=== PATIENT | female | born 1990 | race Caucasian/White ===

== ENCOUNTER → 2018-02-13 | Outpatient (CLI) | payer BC, OTHER ==
--- NOTE | 2018-02-13 12:57 | WOMENS IMAGING REPORT ---
EXAM DESCRIPTION: EMPLOYEE; U/S BREAST UNILAT LIMITED COMPLETED DATE/TIME: 02/13/2018 12:41 pm REASON FOR STUDY: UNSPECIFED LUMP; N63.10 DYSPARURIA; N94.10 N63.10 UNSPECIFIED LUMP IN THE RIGHT BREAST, UNSPECIFIED LIZ N94.10 UNSPECIFIED DYSPAREUNIA COMPARISON: None TECHNIQUE: Static and Realtime grayscale interrogation of focal area(s) of concern in the right kait st(s) acquired. Selected color doppler/spectral images saved to PACS. LIMITATIONS: None. FINDINGS: Masses:No cystic or solid masses identified. Dense parenchymal tissue. Architecture:No alteration of normal morphology. No skin thickening. No edema. Other: None. IMPRESSION: No suspicious findings detected by ultrasound. BIRAD: 1 Negative. RECOMMENDATION: RECOMMENDED FOLLOW-UP: Follow-up as clinically indicated. COMMENT: The [employer] ([employer]) has developed recommendations for screening MRI of the breasts in certain patient populations, to be used in conjunction with mammography. Breast MRI s urveillance may be appropriate for women with more than 20% lifetime risk of developing breast cancer as determined by genetic testing, significant family history of the disease, or history of mantle r adiation for Hodgkins Disease. [employer] Practice Guidelines 2008. TECHNICAL DOCUMENTATION: FINDING NUMBER: (1) ASSESSMENT: (1) JOB ID: [id number] [employer]- All Rights Reserved Reading location - IP/workstation name: [facility]-RR
--- NOTE | 2018-02-13 12:57 | WOMENS IMAGING REPORT ---
EXAM DESCRIPTION: EMPLOYEE; U/S BREAST UNILAT LIMITED COMPLETED DATE/TIME: 02/13/2018 12:41 pm REASON FOR STUDY: UNSPECIFED LUMP; N63.10 DYSPARURIA; N94.10 N63.10 UNSPECIFIED LUMP IN THE RIGHT BREAST, UNSPECIFIED LIZ N94.10 UNSPECIFIED DYSPAREUNIA COMPARISON: None TECHNIQUE: Static and Realtime grayscale interrogation of focal area(s) of concern in the right kait st(s) acquired. Selected color doppler/spectral images saved to PACS. LIMITATIONS: None. FINDINGS: Masses:No cystic or solid masses identified. Dense parenchymal tissue. Architecture:No alteration of normal morphology. No skin thickening. No edema. Other: None. IMPRESSION: No suspicious findings detected by ultrasound. BIRAD: 1 Negative. RECOMMENDATION: RECOMMENDED FOLLOW-UP: Follow-up as clinically indicated. COMMENT: The [employer] ([employer]CR) has developed recommendations for screening MRI of the breasts in certain patient populations, to be used in conjunction with mammography. Breast MRI s urveillance may be appropriate for women with more than 20% lifetime risk of developing breast cancer as determined by genetic testing, significant family history of the disease, or history of mantle r adiation for Hodgkins Disease. A[employer] Practice Guidelines 2008. TECHNICAL DOCUMENTATION: FINDING NUMBER: (1) ASSESSMENT: (1) JOB ID: [id number] [employer]- All Rights Reserved Reading location - IP/workstation name: [facility]-RR
--- NOTE | 2018-02-13 13:25 | WOMENS IMAGING REPORT ---
EXAM DESCRIPTION: TRANSVAGINAL ULTRASOUND COMPLETED DATE/TIME: 02/13/2018 12:41 pm REASON FOR STUDY: UNSPECIFED LUMP; N63.10 DYSPARURIA; N94.10 N63.10 UNSPECIFIED LUMP IN THE RIGHT BREAST, UNSPECIFIED LIZ N94.10 UNSPECIFIED DYSPAREUNIA COMPARISON: None. TECHNIQUE: Dynamic and static grayscale images acquired of the pelvis via transvaginal approach and recorded on PACS. Additional selected color Doppler and spectral images recorded. LIMITATIONS: None. FINDINGS: UTERUS: Contour normal. No mass. ENDOMETRIAL STRIPE: No focal or generalized thickening. No masses. CERVIX: No nabothian cysts. RIGHT OVARY AND DOPPLER: Normal size. No worrisome masses. Normal arterial vascular flow without evid ence for torsion. LEFT OVARY AND DOPPLER: Normal size. No worrisome masses. Normal arterial vascular flow without evide nce for torsion. FREE FLUID: None noted. OTHER: No other significant finding. MEASUREMENTS: UTERUS: 8.3 x 3.2 x 3.8 cm ENDOMETRIAL STRIPE: 3.1 mm RIGHT OVARY: 3.6 x 2.3 x 2.7 cm LEFT OVARY: 3.2 x 2.2 x 3.4 cm IMPRESSION: NORMAL TRANSVAGINAL PELVIC ULTRASOUND. TECHNICAL DOCUMENTATION: JOB ID: [id number] [employer]- All Rights Reserved Reading location - IP/workstation name: [email or web address]
== END ==
LOC: WI 10:09
PROVIDERS: ATTEND Physician Assistant
DX: N63.10 Unspecified lump in the right breast, unspecified quadrant (principal); N94.10 Unspecified dyspareunia
CPT/HCPCS: 76642; 76830

== ENCOUNTER → 2018-05-12 | Outpatient (CLI) | payer BC, OTHER ==
--- NOTE | 2018-05-12 09:47 | RADIOLOGY REPORT (SQ) ---
EXAM DESCRIPTION: U/S ABDOMEN LIMITED W/O DOP COMPLETED DATE/TIME: 05/12/2018 9:32 am REASON FOR STUDY: EPIGASTRIC PAIN R10.13 EPIGASTRIC PAIN COMPARISON: None. TECHNIQUE: Dynamic and static grayscale images acquired of the abdomen and recorded on PACS. Additio nal selected color Doppler and spectral images recorded. LIMITATIONS: None. FINDINGS: PANCREAS: Midline pancreas unremarkable LIVER: No masses. Echotexture normal. LIVER VASCULATURE: Normal directional flow of the main portal vein and hepatic veins. GALLBLADDER: No stones. Normal wall thickness. No pericholecystic fluid. ULTRASOUND-DETECTED CHANEL'S SIGN: Negative. INTRAHEPATIC DUCTS AND COMMON DUCT: CBD and intrahepatic ducts normal caliber. No filling defects. INFERIOR VENA CAVA: Normal flow. AORTA: No aneurysm. RIGHT KIDNEY: Normal size. Normal echogenicity. No solid or suspicious masses. No hydronephrosis. No calcifications. PERITONEAL AND RIGHT PLEURAL SPACE: No ascites or effusions. OTHER: No other significant findings. IMPRESSION: NORMAL RIGHT UPPER QUADRANT ULTRASOUND. TECHNICAL DOCUMENTATION: JOB ID: [id number] [employer]- All Rights Reserved Reading location - IP/workstation name: [facility]-[email or web address]
== END ==
LOC: RAD 09:12
PROVIDERS: ATTEND Physician Assistant
DX: R10.13 Epigastric pain (principal)
CPT/HCPCS: 76705

== ENCOUNTER 2018-08-18 17:21 | Emergency (ER) | payer BC, OTHER ==
--- NOTE | 2018-08-18 17:43 | RADIOLOGY REPORT (SQ) ---
EXAM DESCRIPTION: FOOT RIGHT COMPLETE COMPLETED DATE/TIME: 08/18/2018 5:35 pm REASON FOR STUDY: RIGHT FOOT INJURY COMPARISON: None. NUMBER OF VIEWS: Three views. TECHNIQUE: AP, lateral and oblique radiographic images acquired of the right foot. LIMITATIONS: None. FINDINGS: MINERALIZATION: Normal. BONES: Comminuted fracture of the calcaneus posterior inferior is tube and tear superior extends into the subtalar joint. Mild comminution. There is also an extension anterior inferior. JOINTS: No effusions. SOFT TISSUES: No soft tissue swelling. No foreign body. OTHER: No other significant finding. IMPRESSION: Comminuted minimally displaced fracture of the calcaneus with extension into the subtala r joint. TECHNICAL DOCUMENTATION: JOB ID: [id number] [employer]- All Rights Reserved Reading location - IP/workstation name: [email or web address]
[2018-08-18 17:53] VITALS: BP 134/85
[2018-08-18] MEDS ORDERED: HYDROMORPHONE HCL INJ/PF 2 MG/ML AMPULE IV ONE (17:56)
[2018-08-18] MEDS ORDERED: ONDANSETRON HCL INJ/PF 4 MG/2 ML SDV IV ONE (18:01)
--- NOTE | 2018-08-18 18:02 | ER Document Report ---
HPI - HPI Patient complains to provider of: Foot injury Time Seen by Provider: 08/18/18 17:51 Onset: Just prior to arrival Onset/Duration: Sudden Quality of pain: Sharp Pain Level: 4 Context: Patient states that her dog pulled her down half a flight of stairs just prior to arrival as he was chasing another dog. Patient complains of right heel pain and left midfoot pain. Patient denies any head injury or loss of consciousness. Patient denies any back pain. Associated Symptoms: Other - Bilateral feet injury Exacerbated by: Standing, Movement, Walking Relieved by: Denies Similar symptoms previously: No Recently seen / treated by doctor: No - ROS ROS below otherwise negative: Yes Systems Reviewed and Negative: Yes All other systems reviewed and negative - CONSTITUTIONAL Constitutional: DENIES: Fever, Chills - NEURO Neurology: DENIES: Headache, Weakness - GASTROINTESTINAL Gastrointestinal: DENIES: Nausea - MUSCULOSKELETAL Musculoskeletal: REPORTS: Extremity pain - right heel, top of left foot, Swelling - DERM Skin Color: Normal Skin Problems: Abrasion Past Medical History - General Information source: Patient - Social History Smoking Status: Never Smoker Frequency of alcohol use: None Drug Abuse: None Occupation: Nurse at the hospital Lives with: Spouse/Significant other Family History: Reviewed & Not Pertinent Patient has suicidal ideation: No Patient has homicidal ideation: No - Medical History Medical History: Negative Renal/ Medical History: Denies: Hx Peritoneal Dialysis Past Surgical History: Reports: Hx Adenoidectomy, Hx Myringotomy, Hx Orthopedic Surgery Vertical Provider Document - CONSTITUTIONAL Agree With Documented VS: Yes Exam Limitations: No Limitations General Appearance: WD/WN, No Apparent Distress - INFECTION CONTROL TRAVEL OUTSIDE OF THE [place] IN LAST 30 DAYS: No - HEENT HEENT: Atraumatic, Normocephalic - NECK Neck: Normal Inspection, Supple - RESPIRATORY Respiratory: Breath Sounds Normal, No Respiratory Distress - CARDIOVASCULAR Cardiovascular: Regular Rate, Regular Rhythm Pulses: Normal: Dorsalis pedis - BACK Back: Normal Inspection Notes: No spinal midline tenderness step-off or deformity - MUSCULOSKELETAL/EXTREMETIES Musculoskeletal/Extremeties: MAEW, Tender - Right foot tenderness over calcaneus with 1+ edema, left distal midfoot tenderness that extends to toes 2 through 4, Edema - NEURO Level of Consciousness: Awake, Alert, Appropriate - DERM Integumentary: Warm, Dry Notes: Abrasion overlying left midfoot area Course - Re-evaluation Re-evalutation: 08/18/18 18:[address] clemente regarding patient's fractures to bilateral feet, recommends placing her in bilateral posterior splints and having her follow-up with Dr. Kelley on Tuesday. Does not feel the patient is a surgical case at this time. - Vital Signs Vital signs: Temp Pulse Resp BP Pulse Ox 98.5 F 73 18 134/85 H 99 08/18/18 17:49 08/18/18 17:49 08/18/18 17:49 08/18/18 17:49 08/18/18 17:49 - Diagnostic Test Radiology reviewed: Image reviewed, Reports reviewed Procedures - Immobilization Left Foot Pre-Proc Neuro Vasc Exam: Normal Immobilizer type: Posterior ankle Performed by: PCT Post-Proc Neuro Vasc Exam: Normal Alignment checked and good: Yes Right Foot Pre-Proc Neuro Vasc Exam: Normal Immobilizer type: Posterior ankle Performed by: PCT Post-Proc Neuro Vasc Exam: Normal Alignment checked and good: Yes Discharge - Discharge Clinical Impression: Calcaneus fracture, right Qualifiers: Encounter type: initial encounter Calcaneus location: unspecified portion of calcaneus Fracture type: closed Fracture alignment: displaced Qualified Code(s) : S92.001A - Unspecified fracture of right calcaneus, initial encounter for closed fracture Metatarsal bone fracture Qualifiers: Encounter type: initial encounter Metatarsal bone: third Fracture type: closed Fracture alignment: displaced Laterality: left Qualified Code(s): S92.332A - Displaced fracture of third metatarsal bone, left foot, initial encounter for closed fracture Condition: Stable Disposition: HOME, SELF-CARE Instructions: Foot Fracture ([facility]), Fracture Calcaneus ([facility]), Ice & Elevation ( [facility]), Oral Narcotic Medication ([facility]), Splint Precautions ([facility]) Additional Instructions: Return immediately for any new or worsening symptoms Followup with your primary care provider, call tomorrow to make a followup appointment Follow-up with orthopedics on Tuesday morning for recheck, call first thing on Tuesday. No weightbearing to bilateral feet Prescriptions: Ibuprofen [Motrin 600 Mg Tablet] 600 mg PO Q6H PRN #20 tablet PRN Reason: for pain Ondansetron HCl [Zofran 4 mg Tablet] 1 - 2 tab PO Q6 PRN #15 tablet PRN Reason: Oxycodone HCl/Acetaminophen [Percocet 5-325 mg Tablet] 1 tab PO ASDIR PRN #20 tablet PRN Reason: Raised Toilet Seat With Frame 1 unit XX PRN PRN #1 PRN Reason: Wheelchair 1 each MC DAILY #1 each Forms: Return to Work Referrals: KEN KELLEY MD [ACTIVE STAFF] - 08/21/18
--- NOTE | 2018-08-18 18:44 | RADIOLOGY REPORT (SQ) ---
EXAM DESCRIPTION: XR LEFT FOOT 3 OR MORE VIEWS COMPLETED DATE/TME: 08/18/2018 17:57 CLINICAL HISTORY: 27 years, Female, mid foot, 2-4 toe pain after fall COMPARISON: None. NUMBER OF VIEWS: TECHNIQUE: LIMITATIONS: None. FINDINGS: There is acute fracture involving the head of the third metatarsal, with mild displacement. There is an old fracture of the fifth metatarsal. IMPRESSION: Acute fracture of the head of the third metatarsal. copyright 2010 [employer]- All Rights Reserved
== END 2018-08-18 19:07 | disposition home or self-care (01) ==
LOC: ER 17:21
DX: S92.001A Unspecified fracture of right calcaneus, initial encounter for closed fracture (principal); S92.332A Displaced fracture of third metatarsal bone, left foot, initial encounter for closed fracture; M79.672 Pain in left foot; M79.671 Pain in right foot; R60.9 Edema, unspecified; W10.9XXA Fall (on) (from) unspecified stairs and steps, initial encounter; Y92.9 Unspecified place or not applicable
CPT/HCPCS: 96375; 99283; 96374; 73630 ×2; 29515; J1170; J2405